=== PATIENT | male | born 1970 | race Caucasian/White ===

== ENCOUNTER 2024-03-12 13:20 | Inpatient (IN) | payer OTHER ==
[2024-03-12 14:52] VITALS: BMI 27.2
[2024-03-12] MEDS ORDERED: LOPERAMIDE HCL 2 MG CAPSULE PO PRN (16:03)
[2024-03-12] MEDS ORDERED: BENZONATATE 200 MG CAPSULE PO PRN (16:03)
[2024-03-12] MEDS ORDERED: IBUPROFEN 600 MG TABLET (FP) PO PRN (16:03)
[2024-03-12] MEDS ORDERED: IBUPROFEN 400 MG TABLET (FP) PO PRN (16:03)
[2024-03-12] MEDS ORDERED: BENZOCAINE/MENTHOL (CHLORASEPTIC ) LOZENGE MM PRN (16:03)
[2024-03-12] MEDS ORDERED: MAG HYDROX/AL HYDROX/SIMETH 30 ML UNIT-DOSE CUP PO PRN (16:03)
[2024-03-12] MEDS ORDERED: NALOXONE HCL 0.4 MG/ML VIAL IM PRN (16:03)
[2024-03-12] MEDS ORDERED: POLYETHYLENE GLYCOL (HEALTHYLAX) 3350 17 GM PACKET PO PRN (16:03)
[2024-03-12] MEDS ORDERED: BISMUTH SUBSALICYLATE 524 MG/30 ML PO PRN (16:03)
[2024-03-12] MEDS ORDERED: NALOXONE HCL (KLOXXADO) 8 MG SPRAY NS PRN (16:03)
[2024-03-12] MEDS ORDERED: hydrOXYzine PAMOATE 25 MG CAPSULE (FP) PO PRN (16:03)
[2024-03-12] MEDS ORDERED: ONDANSETRON *ODT* 4 MG TABLET SL PRN (16:03)
[2024-03-12] MEDS ORDERED: MAGNESIUM HYDROX 2400MG/30ML ORAL SUSPENSION 30 ML CUP PO PRN (16:03)
[2024-03-12] MEDS ORDERED: ACETAMINOPHEN 325 MG TABLET (FP) PO PRN (16:03)
[2024-03-12] MEDS ORDERED: guaiFENesin 600 MG TABLET.ER (FP) PO PRN (16:03)
[2024-03-12] MEDS ORDERED: DICYCLOMINE HCL 10 MG CAPSULE PO PRN (16:03)
[2024-03-12] MEDS: NICOTINE 14 MG/24 HOURS TOPICAL PATCH TD SCH (18:35)
[2024-03-12] MEDS: PRENATAL VITAMINS W/ FOLIC ACID TABLET (FP) PO SCH (18:36)
[2024-03-12] MEDS: MELATONIN 5 MG TABLETS PO SCH (22:19)
[2024-03-12] MEDS: THIAMINE 100 MG TABLET PO SCH (22:19)
[2024-03-13] MEDS: methaDONE HCL 40 MG DISPERSABLE TABLET PO ONE (05:31)
[2024-03-13 11:59] LABS: HEMATOCRIT 34.2 % (35.4-49); HEMOGLOBIN 11.7 GM/dL (11.7-16.9); MCH 32.8 pg (25.7-33.7); MCHC 34.2 g/dl (32.0-35.9); MEAN CELL VOLUME 95.8 fl (80-96); MEAN PLT VOLUME 7.8 fl (7.5-11.1); PLATELET COUNT 165 10^3/uL (134-434); RBC 3.57 M/mm3 (4.00-5.60); RDW 13.8 % (11.9-15.9); WHITE BLOOD COUNT 5.5 K/mm3 (4.0-10.0)
[2024-03-13 12:03] LABS: ALBUMIN 3.5 g/dl (3.4-5.0); CALCIUM 9.1 mg/dL (8.5-10.1)
[2024-03-13 12:04] LABS: BLOOD UREA NITROGEN 15.1 mg/dL (7-18)
[2024-03-13 12:06] LABS: CREATININE 0.9 mg/dL (0.55-1.3)
[2024-03-13 12:08] LABS: BILIRUBIN,TOTAL 0.3 mg/dL (0.2-1); TOT PROT 7.1 g/dl (6.4-8.2)
[2024-03-13 13:00] LABS: HIV INTERPRETATION NEGATIVE (NEGATIVE)
[2024-03-14] MEDS: methaDONE 80 MG, methaDONE 10 MG PO ONE (05:17)
[2024-03-14] MEDS ORDERED: methaDONE HCL 10 MG TABLET PO ONE (06:00)
[2024-03-15] MEDS: methaDONE 80 MG, methaDONE 20 MG PO ONE (05:30)
[2024-03-15] MEDS ORDERED: methaDONE HCL 10 MG TABLET PO ONE (06:00)
[2024-03-15] MEDS: METHOCARBAMOL 500 MG TABLET PO PRN (22:16)
[2024-03-16] MEDS ORDERED: methaDONE HCL 10 MG TABLET PO ONE (06:00)
[2024-03-17] MEDS: methaDONE HCL 40 MG DISPERSABLE TABLET PO ONE (05:23)
[2024-03-17 17:05] VITALS: RESP 18
[2024-03-18] MEDS ORDERED: methaDONE HCL 40 MG DISPERSABLE TABLET PO ONE (06:00)
[2024-03-18 08:51] VITALS: BP 116/69; PULSE 74; TEMP 97.3
[2024-03-18] MEDS: methaDONE HCL 40 MG DISPERSABLE TABLET PO ONE (09:24)
== END 2024-03-18 10:15 | disposition other institution (70) | DRG 773 ==
LOC: YASAS 13:20 → Y6N 16:55
PROVIDERS: ADMIT Allergy & Immunology; ATTEND Surgery
PROC: HZ2ZZZZ Detoxification Services for Substance Abuse Treatment (ICD-10-PCS; principal; 2024-03-12)
DX: F11.23 Opioid dependence with withdrawal (principal); F17.210 Nicotine dependence, cigarettes, uncomplicated; M17.12 Unilateral primary osteoarthritis, left knee
CPT/HCPCS: 36415; 80053; 80305; 85027; 86780; 87389; 93005; 93010